=== PATIENT | female | born 1935 | race Caucasian/White ===

== ENCOUNTER 2019-04-20 10:04 | Emergency (ER) | payer OTHER ==
[~2019-04-20] VITALS: Ht 160 cm; Wt 63.5 kg
[~2019-04-20 10:04] MED LIST: ASPIR 8181 M1 PO; CALCIUM500 M1 PO; CELEXA 20 MG TA20 M1 PO; CHLORTHALIDONE25 MG PO; FELODIPINE 5 MG5 M1 PO; FELODIPINE ER2.5 MG PO; FISH OIL 1,001000 M2 PO; LEVAQUIN 500 M500 MG PO; LEVOXYL50 MCG PO; LOTENSIN20 MG PO; MICARDIS40 MG PO; NITROGLYCERIN0.4 MG SUBLING; OMEPRAZOLE20 MG PO; PREVACID15 MG PO; PROTONIX40 M1 PO; SIMVASTATIN20 MG PO; TOPROL XL25 MG PO; VITAMIN D3400 UNI1 PO; ZOFRAN ODT4 MG PO
[2019-04-20] MEDS ORDERED: NORCO 5-325 TA1 EACH PO ×2 (10:15→10:54)
[2019-04-20 11:11] VITALS: BP 185/58
== END 2019-04-20 11:12 | disposition home or self-care (01) ==
LOC: M.ERS 10:04
DX: S42.031A Displaced fracture of lateral end of right clavicle, initial encounter for closed fracture (principal); Z90.49 Acquired absence of other specified parts of digestive tract; Z90.711 Acquired absence of uterus with remaining cervical stump; Z88.5 Allergy status to narcotic agent; Z91.041 Radiographic dye allergy status; Z88.0 Allergy status to penicillin; Z88.2 Allergy status to sulfonamides; W01.0XXA Fall on same level from slipping, tripping and stumbling without subsequent striking against object, initial encounter; Y93.H2 Activity, gardening and landscaping; Y92.89 Other specified places as the place of occurrence of the external cause; Y99.8 Other external cause status

== ENCOUNTER 2021-10-05 07:51 | Emergency (ER) | payer MEDICARE ==
[~2021-10-05] VITALS: Ht 167.6 cm; Wt 58.1 kg
[~2021-10-05 07:51] MED LIST changes: +NORCO 5-325 TA1 EACH PO; +VITAMIN D3 COM1 EACH PO; -VITAMIN D3400 UNI1 PO
[2021-10-05 08:35] LABS: ABSOLUTE BASOPHILS 0.1 thou/uL (0.0-0.2); ABSOLUTE EOSINOPHILS 0.2 thou/uL (0.0-0.7); ABSOLUTE LYMPHOCYTES 0.6 thou/uL (0.8-5.3); ABSOLUTE MONOCYTES 0.5 thou/uL (0.0-1.2); ABSOLUTE NEUTROPHILS 4.8 thou/uL (1.6-8.1); BASOPHILS 0.9 %; EOSINOPHILS 3.1 %; HEMATOCRIT 29.2 % (37.0-47.0); HEMOGLOBIN 9.6 gm/dL (12.0-15.0); LYMPHOCYTES 10.2 %; MCHC 33.1 g/dL (28.0-37.0); MCV 96.8 fL (80.0-100.0); MONOCYTES 7.8 %; MPV 8.1 fl. (7.2-11.1); NUCLEATED RBCS 0 /100WBC; PLATELET COUNT* 166 thou/uL (150-400); RBC 3.01 mil/uL (4.20-5.00); WBC 6.2 thou/uL (4.0-11.0)
[2021-10-05 08:45] LABS: CALCIUM 8.7 mg/dL (8.5-10.1); CREATININE 1.3 mg/dL (0.6-1.3); POTASSIUM 4.7 mmol/L (3.5-5.1)
[2021-10-05 08:50] LABS: ALBUMIN 2.5 g/dL (3.4-5.0); TOTAL BILIRUBIN 0.3 mg/dL (<0.1-1.0); TOTAL PROTEIN 5.6 g/dL (6.4-8.2)
[2021-10-05] MEDS ORDERED: BUPROPION HCL150 M1 PO (08:58)
[2021-10-05] MEDS ORDERED: CHOLECALCIFEROL1 GM PO (09:00)
[2021-10-05] MEDS ORDERED: DULCOLAX STOOL100 M1 PO (09:01)
[2021-10-05] MEDS ORDERED: LEXAPRO 10 MG T10 M2 PO (09:01)
[2021-10-05] MEDS ORDERED: FAMOTIDINE 20 M20 MG PO (09:02)
[2021-10-05] MEDS ORDERED: LOSARTAN POTAS100 MG PO (09:03)
[2021-10-05] MEDS ORDERED: PREVACID30 MG PO (09:05)
[2021-10-05] MEDS ORDERED: MELOXICAM15 MG PO (09:05)
[2021-10-05 10:13] VITALS: BP 175/94
--- NOTE | 2021-10-05 10:19 | EKG ---
[place] [address] ELECTROCARDIOGRAM REPORT Name: EVANGELINA,PATRICIA Ziegler Room: [facility]#: [id number] Admission: 10/05/21 Attend Phys: Discharge: 10/05/21 Date of : 35 Date of Service: 10/05/21829 Report #: [id number] THIS REPORT FOR: //name// [facility] ED Test Date: 2021-10-05 Test Time: 08:30:55 Pat Name: PATRICIA HUTCHINSON Department: Room: Gender: F Manager Administrative Services: MELONIE : 1935 Requested By: Reji Sharma Order Number: [id number] MD: Tushar Jones Measurements Intervals [place] Rate: 93 P: 43 NC: 196 QRS: 15 QRSD: 92 T: 40 QT: 368 QTc: 458 Interpretive Statements Sinus rhythm Compared to ECG 11/17/2015 10:18:56 No significant changes Electronically Signed On 10-05-2021 10:19:52 SURGICAL TECH by Tushar Jones [email or web address] <ELECTRONICALLY SIGNED> By: Tushar Jones MD, [facility] 10/05/21 [phone] Tushar Jones MD, [facility] /EPI
== END 2021-10-05 10:18 | disposition short-term general hospital (02) ==
LOC: M.ERS 07:51
PROVIDERS: Emergency Medicine Emergency Medical Services
DX: S12.191A Other nondisplaced fracture of second cervical vertebra, initial encounter for closed fracture (principal); Z20.822 Contact with and (suspected) exposure to COVID-19; S32.592A Other specified fracture of left pubis, initial encounter for closed fracture; R42 Dizziness and giddiness; R51.9 Headache, unspecified; Z90.711 Acquired absence of uterus with remaining cervical stump; Z90.49 Acquired absence of other specified parts of digestive tract; Z79.899 Other long term (current) drug therapy; Z88.5 Allergy status to narcotic agent; Z91.041 Radiographic dye allergy status; Z88.0 Allergy status to penicillin; Z88.8 Allergy status to other drugs, medicaments and biological substances; Z88.2 Allergy status to sulfonamides; W19.XXXA Unspecified fall, initial encounter; Y93.89 Activity, other specified; Y92.89 Other specified places as the place of occurrence of the external cause; Y99.8 Other external cause status